=== PATIENT | male | born 1945 | race Caucasian/White ===

== ENCOUNTER 2016-10-13 08:30 | Outpatient (CLI) | payer MEDICARE, OTHER | END 2016-10-13 08:31 | disposition home or self-care (01) | DX: S83.411D Sprain of medial collateral ligament of right knee, subsequent encounter (principal); M94.261 Chondromalacia, right knee; S83.521A Sprain of posterior cruciate ligament of right knee, initial encounter; M25.461 Effusion, right knee; M71.21 Synovial cyst of popliteal space [Baker], right knee; M23.303 Other meniscus derangements, unspecified medial meniscus, right knee; M23.91 Unspecified internal derangement of right knee ==

== ENCOUNTER 2017-04-07 14:32 | Outpatient (CLI) | payer MEDICARE, OTHER ==
[2017-04-07] MEDS ORDERED: GADOBUTROL 15 MMOL/15 ML VIAL ONE (15:30)
[2017-04-07] MEDS ORDERED: GADOBUTROL 15 MMOL/15 ML VIAL IVP ONE (16:01)
--- NOTE | 2017-04-08 10:50 | MRI Report ---
EXAM: MRI CERVICAL SPINE WITHOUT AND WITH CONTRAST EXAM DATE: 04/07/2017 04:23 PM. CLINICAL HISTORY: Chronic neck pain for many years. Left upper limb numbness and tingling for 2 month s. COMPARISON: Prior CT, 06/15/15. TECHNIQUE: Multiplanar, multisequence T1-weighted and fluid-sensitive sequences of the cervical spine before and after administration of intravenous contrast. Other: None. IV contrast: 11.[address] FINDINGS: Neurologic Structures: The visualized posterior fossa structures are unremarkable. No signal abnormal ity in the visualized spinal cord. Alignment: Normal. No scoliosis or spondylolisthesis. Bone Marrow: No gross fractures or bone lesions. No marrow edema or abnormal enhancement. Interspace Levels/Facets: C1-C2: Unremarkable. C2-C3: Unremarkable. C3-C4: There is a broad-based posterior osteophyte complex causing mild canal narrowing. There is mod erate right foraminal narrowing. An uncovertebral osteophyte contacts the right C4 nerve root. There is mild left foraminal narrowing. C4-C5: There is a left paracentral disk osteophyte complex causing mild canal narrowing. There is mil d bilateral foraminal narrowing. C5-C6: There is a right paracentral disk osteophyte complex causing mild canal narrowing. There is mo derate right and mild left foraminal narrowing. On the right an uncovertebral osteophyte contacts the C6 nerve root. C6-C7: There is disk desiccation and loss of disk height. There is a broad-based posterior disk osteo phyte complex causing moderate canal narrowing. There is moderate bilateral foraminal narrowing. C7-T1: Unremarkable. Spinal Canal: No enhancing lesions within the spinal canal. No epidural abscess. Musculature: Normal. No edema, enhancement, or fatty atrophy. Other: The paravertebral and prevertebral soft tissues are normal. IMPRESSION: 1. C3-C4: Mild canal narrowing secondary to disk and facet joint degeneration. There is moderate righ t foraminal narrowing. An uncovertebral osteophyte contacts the right C4 nerve root. There is mild le ft foraminal narrowing. 2. C4-C5: There is a left paracentral disk osteophyte complex causing mild canal narrowing. There is mild bilateral foraminal narrowing. 3. C5-C6: There is a right paracentral disk osteophyte complex causing mild canal narrowing. There is moderate right and mild left foraminal narrowing. On the right an uncovertebral osteophyte contacts the C6 nerve root. 4. C6-C7: There is a broad-based posterior disk osteophyte complex causing moderate canal narrowing. There is moderate bilateral foraminal narrowing. [facility] Referring Provider Line: [phone] SITE ID: [id number]
== END 2017-04-07 14:33 | disposition home or self-care (01) ==
LOC: DI 14:32
PROVIDERS: ATTEND Internal Medicine
DX: M50.31 Other cervical disc degeneration, high cervical region (principal); M47.892 Other spondylosis, cervical region
CPT/HCPCS: 72156; A9585

== ENCOUNTER 2017-06-16 13:39 | Outpatient (CLI) | payer MEDICARE, OTHER ==
[2017-06-16 14:06] LABS: HGB - HEMOGLOBIN 14.9 g/dL (14.0-18.0); MEAN CORPUSCULAR HEMOGLOBIN 31.3 pg (27.0-31.0); MEAN CORPUSCULAR HGB CONC 33.7 g/dL (32.0-36.0); MEAN CORPUSCULAR VOLUME 93.1 fL (80.0-94.0); MEAN PLATELET VOLUME 9.2 fL (7.4-11.4); RED BLOOD COUNT 4.76 10^6/uL (4.70-6.10); RED CELL DISTRIBUTION WIDTH 14.3 % (12.0-15.0); WHITE BLOOD COUNT 8.1 x10^3/uL (4.8-10.8)
== END 2017-06-16 13:40 | disposition home or self-care (01) ==
LOC: LAB 13:39
PROVIDERS: ATTEND Orthopaedic Surgery
DX: Z01.818 Encounter for other preprocedural examination (principal)
CPT/HCPCS: 36415; 93005

== ENCOUNTER 2018-03-03 09:30 | Outpatient (CLI) | payer MEDICARE, OTHER ==
--- NOTE | 2018-03-03 16:10 | CT Report ---
Reason: CALCULUS OF KIDNEY Procedure Date: 03/03/2018 Accession Number: [id number] / [id number] Procedure: CT - Abdomen/Pelvis W/O CPT Code: FULL RESULT: EXAM: CT ABDOMEN AND PELVIS EXAM DATE: 03/03/2018 10:09 AM. CLINICAL HISTORY: Calculus of kidney. COMPARISONS: Thoracic spine W/O 06/15/2015 6:17 PM. TECHNIQUE: Routine helical CT imaging was performed through the abdomen and pelvis. IV contrast: . Enteric contrast: No. Reconstructions: Coronal and sagittal. In accordance with CT protocol optimization, one or more of the following dose reduction techniques were utilized for this exam: automated exposure control, adjustment of mA and/or KV based on patient size, or use of iterative reconstructive technique. FINDINGS: Lung Bases: Unremarkable. Liver: Normal. No masses. Gallbladder/Bile Ducts: Unremarkable. Spleen: Normal. Pancreas: Normal. Adrenal Glands: Normal. Kidneys: Symmetric fat stranding is seen around both kidneys. No masses or hydronephrosis. No renal or ureteral calculi are identified on either side. Peritoneal Cavity/Bowel: Normal. No free fluid, free air or adenopathy. No masses or acute inflammatory process. The appendix is well visualized and normal. Pelvic Organs: Normal. The bladder and visualized pelvic organs are within normal limits. Vasculature: Abdominal atherosclerosis without aneurysm. Bones: No aggressive osseous lesions are seen. Thoracic compression fractures of T9 and T10 appear grossly unchanged compared to 2016. Other: None. IMPRESSION: No renal calculi and no hydronephrosis. Symmetric bilateral perirenal fat stranding is often seen in this age group but should be correlated to clinical symptoms. [facility]
[2018-03-03] MEDS ORDERED: IOPAMIDOL-300 100 ML VIAL IVP ONE (19:07)
== END 2018-03-03 09:31 | disposition home or self-care (01) ==
LOC: DI 09:30
PROVIDERS: ATTEND Urology
DX: N20.0 Calculus of kidney (principal)
CPT/HCPCS: 74176

== ENCOUNTER 2018-09-15 17:16 | Emergency (ER) | payer MEDICARE, OTHER ==
[2018-09-15 17:36] VITALS: BP 146/70
--- NOTE | 2018-09-15 18:25 | ED Physician Documentation ---
PD HPI URI - Stated complaint Stated Complaint: FLU SYPTMOMS - Chief complaint Chief Complaint: Resp - History obtained from History obtained from: Patient - History of Present Illness Timing - onset: Today Timing duration: Days (1) Timing details: Abrupt onset, Still present Associated symptoms: Fever, Chills, Dry cough, Other (diffuse body aches and nausea. No abd pain, no dysuria. Some headache.) Contributing factors: No: Sick contact, Travel Similar symptoms before: Has not had sx before Recently seen: Not recently seen Review of Systems Constitutional: reports: Fever, Chills, Myalgias, Fatigue Nose: reports: Congestion Throat: denies: Sore throat Cardiac: denies: Chest pain / pressure Respiratory: reports: Cough. denies: Dyspnea, Wheezing GI: reports: Nausea. denies: Abdominal Pain, Vomiting, Diarrhea Skin: denies: Rash, Lesions Neurologic: reports: Headache. denies: Altered mental status PD PAST MEDICAL HISTORY - Past Medical History Past Medical History: No - Past Surgical History Past Surgical History: Yes - Present Medications Home Medications: Ambulatory Orders Medication Instructions Recorded Confirmed HYDROcod/ACETAM 5/325 [Vicodin 1 - 2 ea PO Q6H PRN #30 tablet 10/29/13 5/325] Calcitonin [Fortical] 1 sprays KALYANI DAILY #1 bottle 06/15/15 HYDROcod/ACETAM 5/325 [Wilton 5/325] 1 - 2 ea PO Q6H PRN #30 tablet 06/15/15 Benzonatate [Tessalon Perle] 100 - 200 mg PO TID PRN #30 capsule 09/15/18 Dexamethasone [Decadron] 4 mg PO DAILY #5 tablet 09/15/18 Hydrocodone/Acetaminophen [Wilton 1 each PO Q6H PRN #15 tablet 09/15/18 5-325 Tablet] Oseltamivir [Tamiflu] 75 mg PO BID #10 capsule 09/15/18 - Allergies Allergies/Adverse Reactions: Allergies Allergy/AdvReac Type Severity Reaction Status Date / Time No Known Drug Allergies Allergy Verified 10/29/13 10:37 - Social History Does the pt smoke?: No Smoking Status: Never smoker Does the pt drink ETOH?: Yes Does the pt have substance abuse?: No - Immunizations Immunizations are current?: Yes PD ED PE NORMAL - Vitals Vital signs reviewed: Yes - General General: Alert and oriented X 3, No acute distress, Well developed/nourished - HEENT HEENT: Ears normal, Pharynx benign - Neck Neck: Supple, no meningeal sign, No adenopathy - Cardiac Cardiac: RRR, No murmur - Respiratory Respiratory: Clear bilaterally - Abdomen Abdomen: Soft, Non tender - Back Back: No CVA TTP - Derm Derm: Normal color, Warm and dry - Extremities Extremities: Normal ROM s pain, No edema, No calf tenderness / cord - Neuro Neuro: Alert and oriented X 3, No motor deficit, Normal speech Results - Vitals Vitals: Oxygen O2 Source Room air - Labs Labs: Laboratory Tests 09/15/18 17:30 Influenza A (Rapid) Negative Influenza B (Rapid) Negative PD MEDICAL DECISION MAKING - ED course Complexity details: reviewed results (flu test is negative but he sounds like the flu. ), considered differential, d/w patient Departure - Departure Disposition: 01 Home, Self Care Clinical Impression: Influenza Condition: Stable Record reviewed to determine appropriate education?: Yes Instructions: ED Flu Follow-Up: Alyson Gillis MD [Primary Care Provider] - Prescriptions: Benzonatate [Tessalon Perle] 100 - 200 mg PO TID PRN #30 capsule PRN Reason: Cough Dexamethasone [Decadron] 4 mg PO DAILY #5 tablet Hydrocodone/Acetaminophen [Wilton 5-325 Tablet] 1 each PO Q6H PRN #15 tablet PRN Reason: Pain Oseltamivir [Tamiflu] 75 mg PO BID #10 capsule Comments: This sounds like influenza. Your rapid test was negative but there is a considerable false negative rate on the test and your symptoms sound like influenza. Treatment is largely focused at symptoms. Use Tessalon if needed for cough. Hydrocodone as needed for pains and cough suppression. Decadron steroid for inflammation will help symptoms generally. Tamiflu antiviral medicine to try to reduce the degree of symptoms and shortened the duration a bit. Stay well-hydrated. Recheck if not improving over the next several days so likely will have some illness for about 7-10 days. Return if worsening. Discharge Date/Time: 09/15/18 18:58
[2018-09-15] MEDS ORDERED: BENZONATATE 100 MG CAPSULE PO STA (18:35)
[2018-09-15] MEDS ORDERED: DEXAMETHASONE 10 MG/ML VIAL PO STA (18:35)
[2018-09-15] MEDS ORDERED: HYDROcod/ACETAM 5/325 MG TABLET PO STA (18:35)
[2018-09-15] MEDS ORDERED: CHERRY SYRUP 10 ML UDC PO ONE (18:35)
[2018-09-15] MEDS ORDERED: OSELTAMIVIR 75 MG CAPSULE PO STA (18:35)
[2018-09-15] MEDS ORDERED: NAPROXEN 250 MG TABLET PO STA (18:36)
== END 2018-09-15 18:58 | disposition home or self-care (01) ==
LOC: ED 17:16
DX: J11.1 Influenza due to unidentified influenza virus with other respiratory manifestations (principal)
CPT/HCPCS: 87275; 87276; 99283; A9270